=== PATIENT | male | born 1995 | race Caucasian/White ===

== ENCOUNTER 2018-10-16 10:30 | Emergency (ER) | payer OTHER ==
--- NOTE | 2018-10-16 11:23 | EDPHY ---
General Time Seen by Provider: 10/16/18 10:37 Narrative: CLINICAL IMPRESSION: Right wrist strain ASSESSMENT/PLAN: 23-year-old right 5th finger [id number] male presents to the emergency department with atraumatic right wrist pain for the last 2 days. Pain at notable over the distal ulna with intermittent paresthesias to the right 5th finger. Negative Tinel and Phalen sign. No pain over the scaphoid. X-rays unremarkable. Patient was placed in a Velcro wrist splint. I suspect his injury may be secondary to his job and I encouraged follow-up with Orthopedic. Referral given. Warning signs return to ED sooner discussed discharge. DIFFERENTIAL DX: Differential includes but not limited to acute fracture, strain/sprain, joint dislocation, soft tissue contusion ED PROCEDURES: Procedure: Splint placement. A Velcro wrist splint was applied to right wrist by information technology intern, supervised by myself. After application of the splint I returned and re-examined the patient. The splint was adequately immobilizing the joint and distal to the splint the patient's circulation and sensation was intact. ED COURSE: 11:20 a.m.: X-ray reviewed by myself and read by Dr. Aguilar, no acute bony abnormality identified. Velcro wrist splint applied for comfort. Orthopedic referral given. CHIEF COMPLAINT: Atraumatic right wrist pain HPI: 23-year-old [id number] male presents to the emergency department with right wrist pain over last 2 days. Patient denies any trauma or injury. 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 He reports no radiating pain to the forearm, elbow or shoulder. No arm swelling. He reports intermittent numbness to the right 5th finger but remainder fingers and thumb are spared. No prior injury or surgery to this wrist. PAST MEDICAL HISTORY: No significant past medical history REVIEW OF SYSTEMS: All other systems negative Constitutional: No fever, no chills Musculoskeletal: No deformity, + joint pain Skin: No rashes, color change or open wounds. Neurological: No sensory loss or weakness. PHYSICAL EXAM: General Appearance: Alert, oriented, appropriate for age, cooperative, NAD, well hydrated, non-toxic appearing, VSS, no hypoxia. Neurological: Alert and oriented x 3, normal sensation and strength of extremities Skin: Warm, dry, no rashes, no nodules on palpation. Musculoskeletal: Reproducible pain to palpation along the distal right ulna. Negative Tinel and Phalen sign. No obvious swelling or deformity. Fur Remodeler strength 5/5 bilaterally. MEDICAL DECISION MAKING: Patient was seen independently. Secondary supervising physician at time of evaluation was Dr. Ga. Diagnosis: Right wrist strain . New, requires workup Summary: See assessment and plan for summary of ED visit Independent visualization of images, tracing, or specimens yes. Patient Progress: Stable for discharge. - Diagnostics Imaging Results: Imaging Impressions Wrist X-Ray 10/16/18 10:50 Impression: Nothing acute identified. - History Smoking Status: Current some day smoker - Objective Vital Signs: Initial Vital Signs Temperature (C) 37.1 C 10/16/18 10:33 Heart Rate 68 10/16/18 10:33 Respiratory Rate 16 10/16/18 10:33 Blood Pressure 123/85 H 10/16/18 10:33 O2 Sat (%) 96 10/16/18 10:33 O2 Delivery Mode Room Air Allergies/Adverse Reactions: No Known Allergies Allergy (Unverified 10/16/18 10:33) Home Medications: Medication Instructions Recorded NK [No Known Home Meds] 10/16/18 Departure - Departure Disposition: Home, Routine, Self-Care Clinical Impression: Acute wrist pain Qualifiers: Laterality: right Qualified Code(s): M25.531 - Pain in right wrist Condition: Good Instructions: Arthralgia (ED) Additional Instructions: DISCHARGE INSTRUCTIONS FROM YOUR DOCTOR Thank you for visiting our emergency department today. You were treated by a physician actuarial assistant today and your case was reviewed with our ED Attending physician. Please keep in mind that discharge from the emergency department does not mean that there is nothing wrong - it simply means that we have not identified an emergency condition that requires further evaluation or treatment in the hospital. You should always plan to follow up with primary care for re- evaluation of your condition in the next 2-3 days. If you have been referred to a specialist, please call as soon as possible (today or tomorrow) to schedule your follow up appointment at the appropriate time. X-RAYS OF THE RIGHT WRIST SHOW NO EVIDENCE OF ACUTE FRACTURE, BONY ABNORMALITY OR DISLOCATION. WE HAVE PLACED YOUR WRIST IN A VELCRO WRIST SPLINT FOR COMFORT. YOU MAY HAVE STRAINED LIGAMENT IN THE WRIST CAUSING YOUR SYMPTOMS. REST AND ELEVATE THE AFFECTED EXTREMITY MUCH POSSIBLE. ICE THE AFFECTED AREAS 20 MIN ON, 20 MIN OFF FOR THE NEXT SEVERAL DAYS. FOLLOW-UP WITH ORTHOPEDICS IF PAIN PERSISTS. A REFERRAL WAS GIVEN TODAY. USE IBUPROFEN OR TYLENOL FOR PAIN CONTROL. RETURN TO ED FOR SEVERE OR WORSENING PAIN, LOSS OF SENSATION TO FINGERS AND HAND, ARM SWELLING OR ANY OTHER CONCERN. People present with illnesses and injuries in different ways, and it is always possible that we have missed something. You may always return for re-evaluation if symptoms worsen or if they are not improving or if you develop new/different symptoms. Again, thank you for choosing our emergency department. We hope that you feel better. Referrals: NONE *PRIMARY CARE P,. [Primary Care Provider] - As per Instructions Inder Adams MD [Medical Doctor] - 3-4 days, if not improved
[2018-10-16 11:32] VITALS: BP 125/61
== END 2018-10-16 11:33 | disposition home or self-care (01) ==
DX: M25.531 Pain in right wrist (principal); Y93.31 Activity, mountain climbing, rock climbing and wall climbing; Y99.0 Civilian activity done for income or pay
CPT/HCPCS: L3984